=== PATIENT | female | born 1940 | race Caucasian/White ===

== ENCOUNTER 2019-06-22 07:10 | Inpatient (IN) | payer MEDICARE ==
[~2019-06-22] VITALS: Ht 157.5 cm; Wt 50.0 kg
[~2019-06-22 07:10] MED LIST: ACETAMIN325 MG PO; ALBUTEROL S2.5 MG/.5; ALBUTEROL S2.5 MG/.5 IN; ALBUTEROL0.5 % IN; AVELOX400 MG OR; AVELOX400 MG PO; CIPRO500 MG OR; CIPROFLOXACN500 MG PO; COMBIVENT IN; CORTISPORIN OP7.5 ML OP; DOXYCYCL HYC100 M1 OR; DOXYCYCL HYC100 M3 OR; DUONEB IN; DUONEB INH; LEVAQUIN750 MG PO; LOPRESSOR50 MG PO; LOVASTATIN10 M1 PO; MEDDOSEPAK OR; METRONIDAZOL500 MG PO; METRONIDAZOLE500 MG PO; MEVACOR10 MG PO; MILLIPRED DP5 MG PO; MULTI OR; MULTI VITAMN PO; MULTIVITAMI1 PO; OXYGEN; PATANOL0.1 % OP; PREDNISONE10 MG PO; PREDNISONE20 MG PO; PREDNISONE50 MG OR; PREMARIN0.625 MG OR; PREMARIN0.625 MG PO; PROAIR HFA IN; PROVENTIL0.083 % IN; PROVERA2.5 MG OR; PROVERA2.5 MG PO; REGLAN10 MG PO; RISPERDAL0.5 MG PO; TRANXENE T7.5 MG OR; TRANXENE T7.5 MG PO; TYLENOL500 MG PO; TYLOPHEN500 MG PO; ZITHROMAX500 MG PO; ZOFRAN ODT4 MG PO; [UNRECOGNIZED DRUG - CODE] IN
--- NOTE | 2019-06-22 07:10 | NUR ---
PT TO ROOM VIA EMS
[2019-06-22 07:47] LABS: HEMOGLOBIN 8.1 g/dl (12.0-16.0); IMMATURE GRANULOCYTES 0.4 % (0.0-5.0); MEAN CELL VOLUME 90.3 fL CALC (80.0-100.0); MEAN CORPUSCULAR HGB 26.1 pG CALC (26.0-32.0); MEAN CORPUSCULAR HGB CONC 28.9 g/L CALC (32.0-36.0); NEUT# 6.15 thou/uL (2.00-7.15); RED BLOOD COUNT 3.1 mill/uL (4.20-5.60); RED CELL DISTRI WIDTH 15.5 % (11.5-15.5)
--- NOTE | 2019-06-22 07:47 | NUR ---
PATIENT ALERT AND ORIENTED TO SELF ONLY. DENIES ANY NEEDS AT THIS TIME. STATES "I WANT TO GO HOME. I DONT WANT TO BE HERE." PATIENT REPORIENTED TO TIME AND SITUATION. PATIENT DENIES ANY WEAKNESS. PATIENT NOTED TO HAVE WET COUGH, NON PRODUCTIVE. DIMINISHED LUNG SOUNDS WITH CRACKLES TO LEFT LOWER LOBE. SIDE RAILS UP X2 AND CALL LIGHT WITHIN REACH.
--- NOTE | 2019-06-22 08:20 | NUR ---
PATIENT RESTING ON STRETCHER, NO SPUTUM PRODUCED AT THIS TIME. PATIENT CONTINUES TO HAVE COUGH. BLANKET PROVIDED.
[2019-06-22 08:36] LABS: INTERNATIONAL NORMALIZED RATIO 0.9 RATIO (0.7-1.3); PROTHROMBIN TIME 9.6 SECONDS (9.0-12.5)
[2019-06-22 08:40] LABS: ALBUMIN 3.4 g/dL (3.2-5.0); ALKALINE PHOSPHATASE 100 u/l (38-126); ANION GAP 7 (6-22 (CALC)); BILIRUBIN, TOTAL 0.4 mg/dL (0.0-1.4); BUN 11 mg/dL (8-23); BUN/CREATININE RATIO 35 (12-20 (CALC)); CARBON DIOXIDE 39 mmol/l (22-30); CHLORIDE 95 mmol/l (95-108); CREATININE 0.3 mg/dL (0.5-1.0); GFR > 60 ML/MIN (>=60 (CALC)); GFR FOR AFR.AMER. > 60 ML/MIN (>=60 (CALC)); POTASSIUM 3.8 mmol/l (3.5-5.1); SGOT/AST 29 u/l (9-36); SODIUM 138 mmol/l (137-146)
[2019-06-22] MEDS ORDERED: MUCINEX1200 MG PO (08:49)
[2019-06-22] MEDS ORDERED: ALPRAZOLAM0.25 MG PO (08:50)
[2019-06-22] MEDS ORDERED: BUDESONID1 IN (08:51)
[2019-06-22] MEDS ORDERED: VENTOLIN HFA IN (08:52)
[2019-06-22] MEDS ORDERED: SPIRIVA IN (08:53)
[2019-06-22] MEDS ORDERED: CARTIA XT240 MG PO (08:53)
--- NOTE | 2019-06-22 08:53 | NUR ---
MED REC COMPLETED WITH DAUGHTER.
--- NOTE | 2019-06-22 09:05 | NUR ---
URINE SAMPLE COLLECTED VIA STRAIGHT CATH AND SPUTUM PRODUCED BY PATIENT. COLLECTED AND SENT TO LAB. PATIENT TOLERATED WELL.
[2019-06-22 09:23] LABS: URINE BILIRUBIN - DIPSTICK NEGATIVE (NEGATIVE); URINE BLOOD DIPSTICK NEGATIVE (NEGATIVE); URINE COLOR YELLOW; URINE GLUCOSE - DIPSTICK NEGATIVE (NEGATIVE); URINE KETONE NEGATIVE (NEGATIVE); URINE LEUK ESTERASE NEGATIVE (NEGATIVE); URINE NITRITE - DIPSTICK NEGATIVE (Negative); URINE PROTEIN - DIPSTICK NEGATIVE (NEG-TRACE); URINE SPECIFIC GRAVITY 1.015; URINE UROBILINOGEN - DIPSTICK 0.2 E.U./dL (0.2)
--- NOTE | 2019-06-22 09:46 | NUR ---
PATIENT AND FAMILY UPDATED ON WAIT TIME. VERBAL UNDERSTANDING.
--- NOTE | 2019-06-22 09:49 | NUR ---
AT BEDSIDE TO DISCUSS RESULTS AND PLAN OF CARE.
--- NOTE | 2019-06-22 10:21 | NUR ---
IV ANTIBIOTIC STARTED. PATIENT AND FAMILY INFORMED OF PENDING ADMIT TO [facility]. VERBAL UNDERSTANDING.
--- NOTE | 2019-06-22 10:24 | NUR ---
ATTEMPT MADE TO CALL REPORT, NO ANSWER. CHARGE NURSE ALLY FAJARDO. WILL TRY TO CALL REPORT AGAIN.
--- NOTE | 2019-06-22 10:33 | NUR ---
SECOND ATTEMPT MADE TO CALL REPORT. SPOKE TO LEONA. NURSE WILL CALL BACK FOR REPORT.
--- NOTE | 2019-06-22 10:50 | NUR ---
REPORT CALLED TO PRIETO MARSHALL.
--- NOTE | 2019-06-22 10:55 | NUR ---
PATIENT TRAN[facility] WITH O2 IN PLACE AND ANTIBIOTICS TO CONTINUE INFUSING ON MEDSUR. PRIETO MARSHALL AT BEDSIDE. CARE RELINQUISHED. BELONGINGS SENT HOME WITH DAUGHTER.
[2019-06-22 11:03] VITALS: BP 124/66
--- NOTE | 2019-06-22 11:18 | NUR ---
PT ARRIVED ON UNIT @ 1110, ALERT AND ORIENTED X 3, DENIES PAIN BUT STATES SHE IS HUNGRY AND WANTS FOOD. BEDSIDE REPORT GIVEN BY OR STAFF, PT SETTLED IN BED, VS BEING MONITORED, C/O HEADACHE AT THIS TIME, CALL TERAN IN REACH.
--- NOTE | 2019-06-22 12:09 | NUR ---
REPORT RECEIVED FROM ERICKA IN ED, PT ARRIVED ON UNIT TRANSPORTED VIA STRETCHER @ 1056. ALERT BUT DISORIENTED, DENIES PAIN/DISCOMFORT AND WANTS TO KNOW WHY SHE IS HERE. ORIENTED TO ROOM AND CALL TREAN, BED ALARM TURNED ON, BED IN LOWEST POSITION, WILL CONTINUE TO MONITOR.
[2019-06-22 16:00] VITALS: BP 132/71
[2019-06-22 18:30] VITALS: BP 97/54
--- NOTE | 2019-06-22 19:50 | NUR ---
PT MOVED TO RM 270 CLOSER TO NURSES STATION, BED ALARM FOR SAFETY.
--- NOTE | 2019-06-22 20:50 | NUR ---
PT RESTING IN BED, DISCUSSED POC, AND MEDICATIONS. PT UPSET STATES THAT HER DAUGHTERS BROUGHT HER HERE AND LEFT HER, THEY ARE TRYING TO TAKE ALL HER MONEY. PT WANTING TO LEAVE AMA, REQUESTING "PAPER TO SIGN OUT" ENCOURAGED PT TO STAY AND TOMORROW SHE CAN SIGN OUT, PT AGREED. ASSESSMENT COMPLETED, PT ALERT TO SELF, BED ALARM FOR SAFETY, CALL LIGHT IN REACH,CONTINUE TO MONITOR.
--- NOTE | 2019-06-22 23:27 | NUR ---
PT RESTING WITH EYES CLOSED, NO SIGNS OF DISTRESS NOTED, RESP EVEN AND UNLABORED. CALL LIGHT IN REACH, BED ALARM FOR SAFETY. CONTINUE TO MONITOR.
--- NOTE | 2019-06-23 04:04 | NUR ---
CURRENCY EXAMINER ENTERED ROOM ATTEMPTED TO OBTAIN AM VITALS, PT DECLINED; REMOVED BP CUFF. WILL ATTEMPT AT LATER TIME. BED ALARM FOR SAFETY. CALL LIGHT IN REACH,CONTINUE TO MONITOR.
--- NOTE | 2019-06-23 04:33 | NUR ---
PT SITTING ON SIDE OF BED, PULLING AT IV TUBING, INSTRUCTED PT TO NOT PULL ON TUBING. PT STATES SHE DOES NOT WANT IV FLUIDS. IV SL, ATTEMPTED TO PLACE MESH NETTING TO LFA, PT REFUSED. ATTEMPTED TO OBTAIN VITALS PT REFUSED. PT STATES TO MATERIAL SPREADER,"YOUR FIRED, NOW GO OUT THAT DOOR." BED ALARM PLACED FOR SAFETY. CALL LIGHT IN REACH,CONTINUE TO MONITOR.
--- NOTE | 2019-06-23 04:44 | NUR ---
PT SITTING ON SIDE OF BED NOTED IV REMOVED, CATHETER INTACT. WHEN ASKED PT WHY SHE REMOVED IV,PT RESPONDS BECAUSE," I FELT LIKE IT". NO BLEEDING NOTED. CALL LIGHT IN REACH, BED ALARM IN PLACE, CONTINUE TO MONITOR.
--- NOTE | 2019-06-23 06:22 | NUR ---
PT SITTING ON SIDE OF BED TEARFUL STATES HER DAUGHTERS ARE STEALING HER MONEY AND SHE HATES THEM STATES THAT SHE HOPES THEY BURN IN HELL, SHES TIRED OF THEM. PT STATES SHE WANTS TO LEAVE, INFORMED PT TO WAIT UNTIL AFTER BREAKFAST, DAUGHTER SHOULD HAVE ARRIVED BY THEN AND DRAzar SHOULD HAVE ARRIVED BY THEN. CALL LIGHT IN REACH, BED ALARM IN PLACE, CONTINUE TO MONITOR.
--- NOTE | 2019-06-23 07:53 | NUR ---
REPORT RECEIVED FROM MATEO VICENTE. PT SITTING UP IN BED; ALERT WITH DEMENTIA. PT VERY AGITATED. WHEN NURSE STATES, "GOOD MORNING" PT RESPONDS "WHATS SO DAMN GOOD ABOUT IT." ATTEMPTED TO EXPLAIN REASON FOR HOSPITAL PNA PT YELLS, "I DONT HAVE NO DAMN PNEUMONIA THE XRAY LIED! WHERES MY DAUGHTER IM GOING HOME." DECLINES VS AND ASSESSMENT. PT DOES NOT APPEAR IN ANY PAIN OR DISTRESS. RESPIRATIONS EVEN AND UNLABORED ON OXYGEN 2L VIA NC. NO IV ACCESS AT THIS TIME. SKIN COLOR APPEARS WNL. WILL CONTINUE TO MONITOR. SAFETY MEASURES IN PLACE INCLUDING BED ALARM. NEEDS ARE ANTICPATED BY STAFF.
--- NOTE | 2019-06-23 09:53 | NUR ---
DAUGHTER NORBERTO AT BEDSIDE; PT COOPERATIVE FOR FAMILY. TOOK PO XANAX AND CARDIZEM. NOW EATING BREAKFAST.
[2019-06-23 10:33] VITALS: BP 130/74
--- NOTE | 2019-06-23 10:46 | NUR ---
LEVAQUIN CHANGED TO PO AND PT COOPERATIVE WITH PO MEDICATION. ALLOWED VS. SPO2 97-91% ON 2L VIA NC. TITRATED UP TO 3L. COURSE LUNGS THROUGHOUT WITH MOIST PRODUCTIVE COUGH. AMBULATED TO BATHROOM WITH ONE PERSON ASSIST FOR LARGE BOWEL MOVEMENT. NOW SITTING UP IN CHAIR EATING MORE BREAKFAST. DAUGTER REMAINS AT BEDSIDE. CALL LIGHT WITHIN REACH.
--- NOTE | 2019-06-23 14:23 | NUR ---
IV SITE STARTED TO LAC AFTER SEVERAL ATTEMPTS; VENEFOR NOW INFUSING. O2 NOW HUMIDIFIED.
[2019-06-23 14:27] VITALS: BP 114/60
--- NOTE | 2019-06-23 17:39 | NUR ---
PT SITTING UP FOR DINNER; DAUGHTER AT BEDSIDE TO ASSIST. PT PLESANT AND THANKFUL. DENIES PAIN. IV FLUIDS INFUSING WITHOUT DIFFICULTY; IV SITE APPEARS HEALTHY. SAFETY MEASURES IN PLACE. CALL LIGHT WITHIN REACH.
[2019-06-23 18:57] VITALS: BP 122/72
--- NOTE | 2019-06-23 19:05 | NUR ---
REPORT RECEIVED FROM ANGELI MOREAU. PT RESTING IN BED, FAMILY AT BEDSIDE. NO S/S OF DISTRESS AT THIS TIME. SAFETY PRECAUTIONS IN PLACE. WILL CONTINUE TO MONITOR.
--- NOTE | 2019-06-23 20:10 | NUR ---
PT RESTING IN BED. FAMILY AT BEDSIDE. RESPIRATIONS EVEN AND UNLABORED ON O2 @ 2L VIA NC. PT DENIES ANY PAIN OR DISCOMFORT AT THIS TIME. PT ASSISTED TO THE RESTROOM AND BACK TO BED PER REQUEST. SAFETY PRECAUTIONS IN PLACE. WILL CONTINUE TO MONITOR.
[2019-06-24] VITALS (7 sets, daily range): BP systolic 127–166; BP diastolic 59–70
--- NOTE | 2019-06-24 00:20 | NUR ---
PT RESTING IN BED. NO S/S OF DISTRESS AT THIS TIME. SAFETY PRECAUTIONS IN PLACE. WILL CONTINUE TO MONITOR.
--- NOTE | 2019-06-24 04:18 | NUR ---
PT REFUSING TO HAVE VS OBTAINED AT THIS TIME
[2019-06-24 05:53] LABS: HEMATOCRIT 23.5 % (37.0-47.0); MEAN CORPUSCULAR HGB 26.2 pG CALC (26.0-32.0); MEAN CORPUSCULAR HGB CONC 29.8 g/L CALC (32.0-36.0); RED BLOOD COUNT 2.67 mill/uL (4.20-5.60); RED CELL DISTRI WIDTH 15.2 % (11.5-15.5)
[2019-06-24 06:20] LABS: ANION GAP 5 (6-22 (CALC)); BUN 14 mg/dL (8-23); BUN/CREATININE RATIO 55 (12-20 (CALC)); CARBON DIOXIDE 33 mmol/l (22-30); CHLORIDE 104 mmol/l (95-108); CREATININE 0.3 mg/dL (0.5-1.0); GFR > 60 ML/MIN (>=60 (CALC)); GFR FOR AFR.AMER. > 60 ML/MIN (>=60 (CALC)); POTASSIUM 3.4 mmol/l (3.5-5.1); SODIUM 139 mmol/l (137-146)
--- NOTE | 2019-06-24 09:25 | NUR ---
ASSESSMENT IS COMPLETED; IV SITE IS FREE FROM REDNESS OR EDEMA. HR IS REG, PULSES ARE STRONG X4, ABD IS SOFT WITH ACTIVE BS. BREATH SOUNDS ARE DIMINISHED. FAMILY IN THE ROOM. CONTINUE TO OSBERVE AND MONITOR.
--- NOTE | 2019-06-24 10:00 | NUR ---
1ST UNIT OF BLOOD TRANSFUSING. NO DISTRESS NOTED.
--- NOTE | 2019-06-24 12:50 | NUR ---
PT IS SITTING ON THE SIDE OF THE BED. NO DISTRESS NOTED. IV SITE IS FREE FROM REDNESS OR EDEA FAMILY IN THE ROOM.
--- NOTE | 2019-06-24 15:15 | NUR ---
PT WANTED IV SITE OUT. EXPLAINED THAT THE DR HAS MEDICATION ORDERED AND NEEDS THE IV IN PLACE WAS INFORMED " I AM THE PT I DON'T HAVE TO HAVE IT IN" EXPLAINED AGAIN ABOUT MEDICATIONS PT MUMBLED " YOU ARE NOT MY NURSE" STATED "OK" . CONTIUE TO OSBERVE AND MONITOR.
--- NOTE | 2019-06-24 16:30 | NUR ---
PT IS VISITING WITH FAMILY NO DISTRESS NOTED. IV SITE IS FREE FROM REDNESS OR EDEMA. TRANSFUSION COMPLETED. DR GRANT CAME IN TO THE ROOM. AND ELBA PERRY.
--- NOTE | 2019-06-24 19:08 | NUR ---
PT UP TO THE BSC NOTICED MORE WHEEZING THIS PM. LISTENED IS WHEEZING ON R UPPER AND MIDDLE WITH LEFT LOWER LOBE IN THE BACK
--- NOTE | 2019-06-24 19:30 | NUR ---
CHANGE OF SHIFT REPORT RECEIVED FROM PRIETO ARRIETA. PATIENT IN BED. NO S/S OF DISTRESS. BED ALARM ON
--- NOTE | 2019-06-24 19:30 | NUR ---
CHANGE OF SHIFT REPORT RECEIVED FROM PRIETO KEITH. NO S/S OF DISTRESS NOTED. PAT'S DAUGHTER IN ATTENDANT
--- NOTE | 2019-06-25 | NUR ---
PATIENT STABLE. NO S/S OF DISTRESS. RESPIRATION EVEN AND UNLABORED. ROLE PLAYER WILL CONTINUE TO MONITOR
--- NOTE | 2019-06-25 04:00 | NUR ---
PT RESTING COMFORTABLY. PT'S DAUGHTER IN ATTENDANT. NO S/S OF DISTRESS. GARMENT STEAMER WILL CONTINUE TO MONITOR
[2019-06-25 04:22] VITALS: BP 118/60
--- NOTE | 2019-06-25 07:30 | NUR ---
PT RESTING IN BED AWAKE. PT IS ALERT AND ORIENTED TO SELF ONLY. SHIFT ASSESSMENT COMPLETED AT THIS TIME. IV TO LAC INFILLTRATED. IV SITE DC'D. OFFERRED COLD COMPRESS. PT REFUSED. PT REFUSED VITAL SIGNS. CALL LIGHT IN REACH. WILL CONTINUE TO MONITOR.
--- NOTE | 2019-06-25 08:40 | NUR ---
B SOY RN AT BEDSIDE TO ESTABLISH IV. UNABLE TO ESTABLISH IV AT THIS TIME. PT CONTINUES TO BE VERBALLY AGGRESSIVE AND AGITATED. DAUGHTER AT BEDSIDE
--- NOTE | 2019-06-25 09:44 | NUR ---
LAB AT BEDSIDE AT THIS TIME
[2019-06-25 09:48] LABS: MEAN CELL VOLUME 90.7 fL CALC (80.0-100.0); MEAN CORPUSCULAR HGB 27.4 pG CALC (26.0-32.0); MEAN CORPUSCULAR HGB CONC 30.2 g/L CALC (32.0-36.0); RED BLOOD COUNT 3.32 mill/uL (4.20-5.60); RED CELL DISTRI WIDTH 15.8 % (11.5-15.5)
[2019-06-25 09:52] LABS: HEMATOCRIT 30.1 % (37.0-47.0); HEMOGLOBIN 9.1 g/dl (12.0-16.0)
[2019-06-25 10:02] LABS: ANION GAP 9 (6-22 (CALC)); BUN 12 mg/dL (8-23); BUN/CREATININE RATIO 40 (12-20 (CALC)); CARBON DIOXIDE 29 mmol/l (22-30); CHLORIDE 102 mmol/l (95-108); CREATININE 0.3 mg/dL (0.5-1.0); GFR > 60 ML/MIN (>=60 (CALC)); GFR FOR AFR.AMER. > 60 ML/MIN (>=60 (CALC)); MAGNESIUM 2.1 mg/dL (1.6-2.3); POTASSIUM 2.8 mmol/l (3.5-5.1); SODIUM 138 mmol/l (137-146)
--- NOTE | 2019-06-25 10:10 | NUR ---
NOTIFIED [facility] OF NO IV STATUS AND K-2.8. ORDERS RECEIVED FOR PO POTASSIUM
--- NOTE | 2019-06-25 12:09 | NUR ---
PT RESTING IN BED AWAKE. RESP ARE EVEN AND UNLABORED. NO DISTRESS NOTED. CALL LIGHT IN REACH. WILL CONTINUE TO MONITOR
--- NOTE | 2019-06-25 15:53 | NUR ---
PT RESTING IN BED AWAKE. RESP ARE EVEN AND UNLABORED. NO DISTRESS NOTED. PT REFUSING TO HAVE VITAL SIGNS OBTAINED AT THIS TIME. CALL LIGHT IN REACH. DAUGHTER AT BEDSIDE. WILL CONTINUE TO MONIOTR.
--- NOTE | 2019-06-25 15:59 | NUR ---
LAB AT BEDSIDE FOR POTASSIUM DRAW AT THIS TIME
--- NOTE | 2019-06-25 18:55 | NUR ---
REPORT FROM SINDI MOREAU. PT SITTING UP IN BED, ALERT TO SELF. NO APPARENT DISTRESS NOTED. O2 AT 3L/M VIA NC. PT PLEASANT HOWEVER REFUSING VS TO BE TAKEN. DAUGHTER PRESENT IN ROOM. DISCUSSED POC. WILL REINFORCE NEEDED. CALL LIGHT WITHIN REACH. WILL CONTINUE TO MONITOR.
--- NOTE | 2019-06-25 21:00 | NUR ---
NEW ORDERS RECEIVED FOR OR STEROIDS DUE TO NO IV ACCESS. IV SOLUMEDROL D/C AT THIS TIME.
--- NOTE | 2019-06-26 01:12 | NUR ---
PT RESTING IN BED WITH EYES CLOSED. NO APPARENT DISTRESS NOTED. DAUGHTER REMAINS AT BEDSIDE. CALL LIGHT WITHIN REACH. WILL CONTINUE TO MONITOR.
--- NOTE | 2019-06-26 05:30 | NUR ---
PT RESTING IN BED WITH EYES CLOSED. NO APPARENT DISTRESS NOTED. CALL LIGHT WITHIN REACH. WILL CONTINUE TO MONITOR.
--- NOTE | 2019-06-26 08:20 | NUR ---
Physical Therapy Missed Vist Note. Tried to see the patient last June 24, 2019, Wednesday. Patient was having IV treatment. Patient rescheduled for Wednesday.
[2019-06-26 08:44] VITALS: BP 166/94
--- NOTE | 2019-06-26 08:58 | NUR ---
FAMILY MEMBER AT BEDSIDE, PATIENT ABLE TO MAKE NEEDS KNOWN, PATIENT VERY IRRITABLE, NO C/O PAIN, NO S/S RESP DISTRESS, PATIENT ON O2 VIA NC, PATIENT ASSIST X 1 TO COMMODE, PATIENT HAS +2 EDEMA TO YULIA. LOWER EXTREMITIES BELTRAN HOSE ON, WILL CONTINUE TO MONITOR PATIENT, CALL LIGHT WITHIN REACH
[2019-06-26 16:00] VITALS: BP 142/88
[2019-06-26 19:10] VITALS: BP 164/101
--- NOTE | 2019-06-26 20:00 | NUR ---
PATIENT SITTING UP ON THE SIDE OF THE BED WITHO2 VIA NASAL CANNULA IN PLACE. CALLED RT FOR NEB TREATMENT PATIENT REFUSED TREATMENTS EARLIER TODAY. PATIENT IS ALERT TO SELF AND DAUGHTER AT BEDSIDE. NO IV ACCESS AT THIS TIME. PATIENT WITH GENERALIZED EDEMA NOTED TO ALL EXTREMITIES. ARMS ARE SEVERLY BRUISED FRO PREVIOUS IV'S AND VENIPUNCTURES. SAFETY PRECAUTIONS REINFORCED. CALL LIGHT IN REACH. WILL CONT TO MONITOR.
--- NOTE | 2019-06-26 22:27 | NUR ---
PATIENT UP TO THE BSC TO VOID AND THEN BACK TO BED. BELTRAN STOCKINGS REMOVED-BLE SWELLING AND BRUISING NOTED. FEET ARE COOL TO TOUCH. PATIENT MEDICATED WITH XANAX 0.25MG PO FOR ANXIETY, O2 VIA NASAL CANNULA IN PLACE. ASSISTED INTO BED. FEET ELEVATED ON PILLOWS. DAUGHTER AT BEDSIDE WITH COT PROVIDED. SAFETY PRECAUTIONS REINFORCED. CALL LIGHT IN REACH. WILL CONT TO MONITOR.
--- NOTE | 2019-06-27 00:18 | NUR ---
APPEARS SLEEPING AT THIS TIME WITH HOB SLIGHTLY ELEVATED AND O2 VIA NASAL CANNULA INPLACE. RESP ARE EVEN AND UNLABORED. DAUGHTER RESTING ON COT PROVIDED. CALL LIGHT IN REACH. WILL CONT TO MONITOR.
--- NOTE | 2019-06-27 04:19 | NUR ---
PATIENT RESTING IN BED AT THIS TIME WITH O2 VIA NASAL CANNULA. PATIENT REFUSING ANY LAB WORK BE DRAWN AT THIS TIME. DAUGHTER REMAINS RESTING ON COT PROVIDED. CALL LIGHT IN REACH. WILL CONT TO MONITOR.
--- NOTE | 2019-06-27 04:32 | NUR ---
patient refuse to take vitals at this time 0425.
--- NOTE | 2019-06-27 07:58 | NUR ---
PATIENT NO NOT WANT ANY ASSESSMENTS EARLY IN AM, ASSIGN NURSE OBSERVED PATIENT SLEEPING, PATIENT S/S OF PAIN, NO S/S RESP DISTRESS, PATIENT ON ROOM AIR, FAMILY MEMBER AT BEDSIDE, WILL CONTINUE TO MONITOR PATIENT CALL LIGHT WITHIN REACH
[2019-06-27 09:45] VITALS: BP 157/93
--- NOTE | 2019-06-27 12:08 | NUR ---
patient was seen today for PT, she was hesistant to particapte but eventually cooperated well. Standing AROM exercises performed consisting of marching in place, heel raises, seated clamshells, LAQ and seated marching 10x1 set. transfer to bed side commode peformed with close supervision and verbal cues for proper hand placement, standing unsupported with lateral reaching and anterior reaching 5x2 sets. Patient participated in gait training inside room using 2ww with close SBA, tolerated 40x2 sets without SOB or fatigue reported. Patient was left sitting on bed side and ready to eat lunch. call rendon left near patient
--- NOTE | 2019-06-27 12:15 | NUR ---
PATIENT ALERT WITH CONFUSION, PATIENT NO S/S RESP DISTRESS, PATIENT ON ROOM AIR, NO S/S OF PAIN, PATIENT IS VERY IRRITABLE AND ANGRY, PATIENT REQUEST TO BE SIGN OUT OF HOSPITAL, ATTEMPT TO REDIRECT PATIENT MULTIPLE TIMES AND WAS UNSUCCESSFUL, BOOM STICK MAN ORDERED AN SEROQUELX1, WILL CONTINUE TO MONITOR PATIENT, CALL LIGHT WITHIN REACH
[2019-06-27 15:54] VITALS: BP 148/72
--- NOTE | 2019-06-27 17:15 | NUR ---
PATIENT ALERT WITH CONFUSION, NO S/S RESP DISTRESS, PATIENT ON O2 VIA NC, PATIENT NO S/S OF PAIN, SEROQUEL WAS EFFECTIVE FROM ONE HOUR, PATIENT RETURN TO THE SAME BEHAVIOR, PATIENT VERY IRRITABLE AND ANGRY, PATIENT REQUESTING TO LEAVE HOSPITAL AND WALLET AND ID, PATIENT WALLET AND ID IS WITH DAUGHTER, INFORM PATIENT MULTIPLE TIMES REDIRECT IS UNSUCCESSFUL, WILL CONTINUE TO MONITOR
[2019-06-27 19:30] VITALS: BP 197/96
--- NOTE | 2019-06-27 20:30 | NUR ---
PATIENT RESTING IN BED AT THIS TIME WITH O2 VIA NASAL CANNULA IN PLACE. AWAKE ALERT AND ORIENTED TO PERSON AND PLACE. PATIENT IS PLEASANT AT THIS TIME BUT CONT TO REFUSE VS TO BE TAKEN AND THIS TIME. DAUGHTER HERE AT BEDSIDE YULIA LE SWELLING IMPROVED-STILL WITH SEVERE BRUISING TO ALL EXTREMITIES. HS MEDS WERE GIVEN. XANAX GIVEN PER REQUEST. RT CALLED AND NEB TREATMENT PER PATIENT REQUEST. SAFETY PRECAUTIONS REINFORCED. CALL LIGHT IN REACH. WILL CONT TO MONITOR.
--- NOTE | 2019-06-28 00:20 | NUR ---
PATIENT APPEARS SLEEPING WITH HOB ELEVATED AND EYES CLOSED. O2 VIA NASAL CANNULA IN PLACE. DAUGHTER RESTING ON COT PROVIDED. CALL LIGHT IN REACH. WILL CONT TO MONITOR.
--- NOTE | 2019-06-28 03:38 | NUR ---
APPEARS SLEEPING AT THIS TIME WITH O2 VIA NASAL CANNULA IN PLACE. RESP ARE EVEN AND UNLABORED. DAUGHTER RESTING ON COT PROVIDED. CALL LIGHT IN REACH. WILL CONT TO MONITOR.
--- NOTE | 2019-06-28 06:00 | NUR ---
PATIENT RESTING IN BED WITH O2 VIA NASAL ANNULA IN PLACE. PATIENT CONT TO REFUSE LAB WORK AGAIN THIS MORNING AND PATIENT DAUGHTER ASKED RT NOT TO WAKE THE PATIENT THIS MORNING FOR TREATMENT-SHE WAS SLEEPING. CALL LIGHT IN REACH, WILL CONT TO MONITOR.
--- NOTE | 2019-06-28 08:29 | NUR ---
UP TO BSC TO VOID; NO URINARY INCONTINENCE. DAUGHTER AT BEDSIDE. PT PLEASANT AND COOPERATIVE. VSS. LUNGS ARE COURSE. SITTING UP NOW ON EDGE OF BED FOR BREAKFAST. PLAN OF CARE REVIEWED. PT ENCOURAGED TO VERBALIZE CONCERNS. STATES UNDERSTANDING. CALL LIGHT WITHIN REACH.
[2019-06-28 08:30] VITALS: BP 149/83
--- NOTE | 2019-06-28 09:00 | NUR ---
RT AT BEDSIDE FOR BREATHING TREAMTENT.
--- NOTE | 2019-06-28 09:10 | NUR ---
PT NOT COOPERATIVE AT THIS TIME; AGITATED. NEEDED A LOT OF ENCOURAGMENT FROM DAUGHTER TO TAKE PO MEDICATIONS. XANAX GIVEN WITH AM MEDS.
[2019-06-28 09:18] VITALS: BP 149/83
[2019-06-28] MEDS ORDERED: QUETIAPINE FUMA25 MG PO (12:08)
[2019-06-28] MEDS ORDERED: LASIX 20 MG TAB20 MG PO (12:09)
[2019-06-28] MEDS ORDERED: PREDNISONE10 MG PO (12:09)
[2019-06-28] MEDS ORDERED: LEVAQUIN500 MG PO (12:10)
--- NOTE | 2019-06-28 12:44 | NUR ---
DISCHARGE INSTRUCTIONS GIVEN TO PT WITH DAUGHTER AT BEDSIDE. CASE MANGEMENT ALSO AT BEDSIDE TO DISCUSS [facility]. PT BEING ASSISTED WITH GETTING DRESSED.
--- NOTE | 2019-06-28 13:12 | NUR ---
Discharge instructions given. Patient verbalizes understanding of same. Discharged in stable condition via Wheelchair to Home with family. All belongings sent with pt.
== END 2019-06-28 13:12 | disposition home health service (06) | DRG 190 ==
LOC: ED 07:10 → MS2 09:57 → ED-I 09:57 → MS2 10:19
PROVIDERS: Family Medicine; Nurse Practitioner Family; ADMIT Internal Medicine; ATTEND Internal Medicine
PROC: 30233N1 Transfusion of Nonautologous Red Blood Cells into Peripheral Vein, Percutaneous Approach (ICD-10-PCS; principal; 2019-06-24)
DX: J43.9 Emphysema, unspecified (principal); J18.9 Pneumonia, unspecified organism; J96.10 Chronic respiratory failure, unspecified whether with hypoxia or hypercapnia; F03.91 Unspecified dementia, unspecified severity, with behavioral disturbance; J90 Pleural effusion, not elsewhere classified; I11.0 Hypertensive heart disease with heart failure; I50.9 Heart failure, unspecified; D64.9 Anemia, unspecified; E87.6 Hypokalemia; F41.8 Other specified anxiety disorders; Z99.81 Dependence on supplemental oxygen; Z79.52 Long term (current) use of systemic steroids; F03.90 Unspecified dementia, unspecified severity, without behavioral disturbance, psychotic disturbance, mood disturbance, and anxiety; J44.9 Chronic obstructive pulmonary disease, unspecified; Z76.89 Persons encountering health services in other specified circumstances; R05 Cough; I10 Essential (primary) hypertension; Z79.899 Other long term (current) drug therapy
CPT/HCPCS: G0378; J1756; P9016

== ENCOUNTER 2019-07-09 10:56 | Inpatient (IN) | payer MEDICARE ==
[~2019-07-09] VITALS: Ht 157.5 cm; Wt 45.5 kg
[~2019-07-09 10:56] MED LIST changes: +ALPRAZOLAM0.25 MG PO; +BUDESONID1 IN; +CARTIA XT240 MG PO; +LASIX 20 MG TAB20 MG PO; +LEVAQUIN500 MG PO; +MUCINEX1200 MG PO; +QUETIAPINE FUMA25 MG PO; +SPIRIVA IN; +VENTOLIN HFA IN
[2019-07-09 12:54] LABS: HEMATOCRIT 40.5 % (37.0-47.0); HEMOGLOBIN 11.9 g/dl (12.0-16.0); IMMATURE GRANULOCYTES 1.5 % (0.0-5.0); MEAN CELL VOLUME 96.4 fL CALC (80.0-100.0); MEAN CORPUSCULAR HGB 28.3 pG CALC (26.0-32.0); MEAN CORPUSCULAR HGB CONC 29.4 g/dL CAL (32.0-36.0); NEUT# 26.73 thou/uL (2.00-7.15); RED BLOOD COUNT 4.2 mill/uL (4.20-5.60); RED CELL DISTRI WIDTH 19.1 % (11.5-15.5)
[2019-07-09 15:04] LABS: ALBUMIN 2.9 g/dL (3.2-5.0); ALKALINE PHOSPHATASE 94 u/l (38-126); BUN 17 mg/dL (8-23); BUN/CREATININE RATIO 58 (12-20 (CALC)); CREATININE 0.3 mg/dL (0.5-1.0); GFR > 60 ML/MIN (>=60 (CALC)); GFR FOR AFR.AMER. > 60 ML/MIN (>=60 (CALC)); POTASSIUM 3.1 mmol/l (3.5-5.1); SGOT/AST 24 u/l (9-36); SODIUM 137 mmol/l (137-146); TOTAL PROTEIN 5.6 g/dL (6.3-8.2)
[2019-07-09 15:05] LABS: BILIRUBIN, TOTAL 0.9 mg/dL (0.0-1.4); CHLORIDE 89 mmol/l (95-108)
[2019-07-09 15:14] LABS: CARBON DIOXIDE 46 mmol/l (22-30)
[2019-07-09 15:15] LABS: ANION GAP 5 (6-22 (CALC))
[2019-07-09 17:45] VITALS: BP 131/94
[2019-07-09 17:59] LABS: URINE BILIRUBIN - DIPSTICK NEGATIVE (NEGATIVE); URINE BLOOD DIPSTICK NEGATIVE (NEGATIVE); URINE COLOR YELLOW; URINE GLUCOSE - DIPSTICK NEGATIVE (NEGATIVE); URINE KETONE TRACE mg/dL (NEGATIVE); URINE LEUK ESTERASE NEGATIVE (Negative); URINE NITRITE - DIPSTICK NEGATIVE (Negative); URINE PH 7.5 (4.5-8.0); URINE PROTEIN - DIPSTICK 30 mg/dL (NEG-TRACE)
[2019-07-09 18:02] LABS: URINE CLARITY CLOUDY
[2019-07-09 18:09] LABS: URINE AMORPH SEDIMENT MANY hpf (NONE-FEW); URINE SQUAMOUS EPITHELIAL CELL FEW EPI/hpf (0-FEW)
[2019-07-10] VITALS (18 sets, daily range): BP systolic 122–153; BP diastolic 57–83
[2019-07-10 09:10] LABS: BUN 25 mg/dL (8-23); BUN/CREATININE RATIO 79 (12-20 (CALC)); CHLORIDE 94 mmol/l (95-108); CREATININE 0.3 mg/dL (0.5-1.0); GFR > 60 ML/MIN (>=60 (CALC)); GFR FOR AFR.AMER. > 60 ML/MIN (>=60 (CALC)); SODIUM 139 mmol/l (137-146)
[2019-07-10 09:19] LABS: ANION GAP 5 (6-22 (CALC)); CARBON DIOXIDE 44 mmol/l (22-30); POTASSIUM 3.9 mmol/l (3.5-5.1)
[2019-07-11] VITALS (11 sets, daily range): BP systolic 114–149; BP diastolic 53–81
[2019-07-11 05:18] LABS: MEAN CELL VOLUME 97.4 fL CALC (80.0-100.0); MEAN CORPUSCULAR HGB CONC 28.7 g/dL CAL (32.0-36.0); RED BLOOD COUNT 3.47 mill/uL (4.20-5.60); RED CELL DISTRI WIDTH 18.6 % (11.5-15.5)
[2019-07-11 05:19] LABS: HEMATOCRIT 33.8 % (37.0-47.0); HEMOGLOBIN 9.7 g/dl (12.0-16.0)
[2019-07-11 05:49] LABS: BUN 32 mg/dL (8-23); BUN/CREATININE RATIO 70 (12-20 (CALC)); CHLORIDE 95 mmol/l (95-108); CREATININE 0.5 mg/dL (0.5-1.0); GFR > 60 ML/MIN (>=60 (CALC)); GFR FOR AFR.AMER. > 60 ML/MIN (>=60 (CALC)); MAGNESIUM 2.4 mg/dL (1.6-2.3); POTASSIUM 3.9 mmol/l (3.5-5.1); SODIUM 139 mmol/l (137-146)
[2019-07-11 06:06] LABS: CARBON DIOXIDE 46 mmol/l (22-30)
[2019-07-11 06:07] LABS: ANION GAP 2 (6-22 (CALC))
[2019-07-12 03:02] VITALS: BP 141/74
[2019-07-12 09:16] VITALS: BP 155/75
[2019-07-12 11:54] VITALS: BP 153/74
[2019-07-12 17:13] VITALS: BP 156/77
[2019-07-12 19:25] VITALS: BP 162/61
[2019-07-13 05:43] LABS: HEMATOCRIT 31.9 % (37.0-47.0); HEMOGLOBIN 9.2 g/dl (12.0-16.0); MEAN CELL VOLUME 97.3 fL CALC (80.0-100.0); MEAN CORPUSCULAR HGB CONC 28.8 g/dL CAL (32.0-36.0); RED BLOOD COUNT 3.28 mill/uL (4.20-5.60); RED CELL DISTRI WIDTH 17.4 % (11.5-15.5)
[2019-07-13 06:00] LABS: BUN 22 mg/dL (8-23); BUN/CREATININE RATIO 66 (12-20 (CALC)); CHLORIDE 91 mmol/l (95-108); CREATININE 0.3 mg/dL (0.5-1.0); GFR > 60 ML/MIN (>=60 (CALC)); GFR FOR AFR.AMER. > 60 ML/MIN (>=60 (CALC)); SODIUM 141 mmol/l (137-146)
[2019-07-13 06:02] LABS: POTASSIUM 2.9 mmol/l (3.5-5.1)
[2019-07-13 06:12] LABS: ANION GAP 4 (6-22 (CALC)); CARBON DIOXIDE 49 mmol/l (22-30)
[2019-07-13 08:30] VITALS: BP 151/70
[2019-07-13 11:38] VITALS: BP 136/64
[2019-07-13 15:20] VITALS: BP 144/72
[2019-07-13 19:28] VITALS: BP 154/73
[2019-07-14 05:00] VITALS: BP 140/64
[2019-07-14 06:51] LABS: BUN 22 mg/dL (8-23); CHLORIDE 91 mmol/l (95-108); CREATININE < 0.2 mg/dL (0.5-1.0); GFR > 60 ML/MIN (>=60 (CALC)); GFR FOR AFR.AMER. > 60 ML/MIN (>=60 (CALC)); SODIUM 139 mmol/l (137-146)
[2019-07-14 07:05] LABS: ANION GAP 5 (6-22 (CALC)); POTASSIUM 4.4 mmol/l (3.5-5.1)
[2019-07-14 07:06] LABS: CARBON DIOXIDE 47 mmol/l (22-30)
[2019-07-14 08:00] VITALS: BP 156/75
[2019-07-14 14:31] VITALS: BP 136/84
[2019-07-14 19:05] VITALS: BP 140/78
[2019-07-15 03:40] VITALS: BP 127/80
[2019-07-15 06:11] LABS: BUN 28 mg/dL (8-23); BUN/CREATININE RATIO 127 (12-20 (CALC)); CHLORIDE 91 mmol/l (95-108); CREATININE 0.2 mg/dL (0.5-1.0); GFR > 60 ML/MIN (>=60 (CALC)); GFR FOR AFR.AMER. > 60 ML/MIN (>=60 (CALC)); MAGNESIUM 2.3 mg/dL (1.6-2.3); SODIUM 138 mmol/l (137-146)
[2019-07-15 06:18] LABS: ANION GAP 9 (6-22 (CALC))
[2019-07-15 06:21] LABS: CARBON DIOXIDE 42 mmol/l (22-30)
[2019-07-15 15:40] VITALS: BP 134/80
[2019-07-16 04:29] LABS: MEAN CELL VOLUME 94.6 fL CALC (80.0-100.0); MEAN CORPUSCULAR HGB 27.7 pG CALC (26.0-32.0); MEAN CORPUSCULAR HGB CONC 29.3 g/dL CAL (32.0-36.0); RED BLOOD COUNT 4.04 mill/uL (4.20-5.60); RED CELL DISTRI WIDTH 18.2 % (11.5-15.5)
[2019-07-16 04:30] LABS: HEMATOCRIT 38.2 % (37.0-47.0); HEMOGLOBIN 11.2 g/dl (12.0-16.0)
[2019-07-16 04:45] LABS: BUN 26 mg/dL (8-23); BUN/CREATININE RATIO 105 (12-20 (CALC)); CHLORIDE 83 mmol/l (95-108); CREATININE 0.3 mg/dL (0.5-1.0); GFR > 60 ML/MIN (>=60 (CALC)); GFR FOR AFR.AMER. > 60 ML/MIN (>=60 (CALC)); MAGNESIUM 2.4 mg/dL (1.6-2.3); POTASSIUM 3.2 mmol/l (3.5-5.1); SODIUM 135 mmol/l (137-146)
[2019-07-16 04:51] LABS: ANION GAP 6 (6-22 (CALC))
[2019-07-16 04:54] LABS: CARBON DIOXIDE 49 mmol/l (22-30)
[2019-07-16 05:50] VITALS: BP 110/72
[2019-07-16 15:22] VITALS: BP 122/60
[2019-07-16 19:58] VITALS: BP 118/59
[2019-07-17 05:02] VITALS: BP 107/69
[2019-07-17 05:07] LABS: BUN 22 mg/dL (8-23); BUN/CREATININE RATIO 105 (12-20 (CALC)); CHLORIDE 86 mmol/l (95-108); CREATININE 0.2 mg/dL (0.5-1.0); GFR > 60 ML/MIN (>=60 (CALC)); GFR FOR AFR.AMER. > 60 ML/MIN (>=60 (CALC)); POTASSIUM 3.8 mmol/l (3.5-5.1); SODIUM 138 mmol/l (137-146)
[2019-07-17 05:14] LABS: ANION GAP 4 (6-22 (CALC))
[2019-07-17 05:16] LABS: CARBON DIOXIDE 52 mmol/l (22-30)
[2019-07-17 08:00] VITALS: BP 114/40
[2019-07-17 15:25] VITALS: BP 112/67
[2019-07-17] MEDS ORDERED: DOXYCYC MONO100 M2 PO (17:41)
[2019-07-17] MEDS ORDERED: PREDNISONE10 MG PO (17:41)
[2019-07-17 18:45] VITALS: BP 115/70
== END 2019-07-17 19:30 | disposition hospice, home (50) | DRG 193 ==
LOC: ED 10:56 → ED-I 11:18 → ED 15:48 → ED-I 15:49 → ICU 15:49 → MS2 07-11 15:30
PROVIDERS: Family Medicine; Nurse Practitioner Family; ADMIT Internal Medicine; ATTEND Internal Medicine
PROC: 06HY33Z Insertion of Infusion Device into Lower Vein, Percutaneous Approach (ICD-10-PCS; principal; 2019-07-09)
PROC: 5A09357 Assistance with Respiratory Ventilation, Less than 24 Consecutive Hours, Continuous Positive Airway Pressure (ICD-10-PCS; 2019-07-09)
DX: J10.08 Influenza due to other identified influenza virus with other specified pneumonia (principal); J96.22 Acute and chronic respiratory failure with hypercapnia; J96.21 Acute and chronic respiratory failure with hypoxia; F03.91 Unspecified dementia, unspecified severity, with behavioral disturbance; M48.54XA Collapsed vertebra, not elsewhere classified, thoracic region, initial encounter for fracture; J15.9 Unspecified bacterial pneumonia; J44.0 Chronic obstructive pulmonary disease with (acute) lower respiratory infection; J44.1 Chronic obstructive pulmonary disease with (acute) exacerbation; F03.90 Unspecified dementia, unspecified severity, without behavioral disturbance, psychotic disturbance, mood disturbance, and anxiety; I10 Essential (primary) hypertension; I25.10 Atherosclerotic heart disease of native coronary artery without angina pectoris; E87.6 Hypokalemia; D64.9 Anemia, unspecified; Y95 Nosocomial condition; Z77.22 Contact with and (suspected) exposure to environmental tobacco smoke (acute) (chronic); Z87.891 Personal history of nicotine dependence; Z99.81 Dependence on supplemental oxygen; Z87.01 Personal history of pneumonia (recurrent); Z20.828 Contact with and (suspected) exposure to other viral communicable diseases
CPT/HCPCS: J0692; J3370; J7626